=== PATIENT | female | born 1980 | race American Indian/Alaskan Native ===

== ENCOUNTER 2018-12-01 20:28 | Emergency (ER) | payer MEDICAID ==
--- NOTE | 2018-12-01 20:33 | Event Note ---
ED Screening Note Date of service: 12/01/18 Time: 20:32 ED Screening Note: Patient with Ventral hernia pain started today. Pain 9/10 and sharp and radiating to back. No n/v or fever or chills. Patient with h/o hernia and repaired in 2017 but returned 2 weeks later. [place] [facility] [place] Wears abdominal binder daily. Denies urinary symptoms Pt had vaginal delivery with eclampsia. Delivered 09/20/2018 at [facility]. Recent liver scan and liver enzymes monitored bt BY Opal Devlin at [place]. Gi. Doctor Tachycardia with BP 135/95 and monitored Abdomen: upper mid abdominal protrusion with TTP and irreducuble Hernia. Positive gaurding and rebound This initial assessment/diagnostic orders/clinical plan/treatment(s) is/are subject to change based on patients health status, clinical progression and re- assessment by fellow clinical providers in the ED. Further treatment and workup at subsequent clinical providers discretion. Patient/guardian urged not to elope from the ED as their condition may be serious if not clinically assessed and managed. Initial orders include: labs and ct scan
[2018-12-01] MEDS ORDERED: ZOFRAN IV ONE ×2 (21:15→22:58)
[2018-12-01] MEDS ORDERED: NACL 0.9% 1000 ML 1,000 ML IV ONE (21:15)
[2018-12-01] MEDS ORDERED: MORPHINE IV ONE (21:15)
[2018-12-01 21:24] LABS: Basophils # (Auto) 0.1 K/mm3 (0.0-0.1); Basophils % (Auto) 1.7 % (0.0-1.8); Eosinophils % (Auto) 0.6 % (0.0-4.3); Hematocrit 46.2 % (30.3-42.9); Hemoglobin 15.7 gm/dl (10.1-14.3); Lymphocytes # (Auto) 2.1 K/mm3 (1.2-5.4); Lymphocytes % (Auto) 33.3 % (13.4-35.0); Mean Corpuscular HGB Conc 34 % (30-34); Mean Corpuscular Volume 90 fl (79-97); Monocytes # (Auto) 0.5 K/mm3 (0.0-0.8); Monocytes % (Auto) 8.2 % (0.0-7.3); Platelet Count 242 K/mm3 (140-440); Red Blood Count 5.15 M/mm3 (3.65-5.03); Red Cell Distribution Width 13.7 % (13.2-15.2)
[2018-12-01 21:49] LABS: Albumin 4.7 g/dL (3.9-5); Bilirubin,Direct 0.3 mg/dL (0-0.2)
[2018-12-01 21:56] LABS: HCG Qualitative,Urine Negative (Negative)
--- NOTE | 2018-12-01 22:02 | Emergency Department Report ---
ED Abdominal Pain HPI - General Chief Complaint: Abdominal Pain Stated Complaint: HERNIA PAIN Time Seen by Provider: 12/01/18 20:30 Source: patient Mode of arrival: Ambulatory Limitations: No Limitations - History of Present Illness Initial Comments: Patient is a 38 y/o aaf with hx Ventral hernia, repair 2 yrs ago, states recurring protrusion usually manged with abdominal binder, pt [place] [facility] [place], Pt presents today for 9/10 abdominal pain . Pain described as sharp and radiating to back. No n/v or fever or chills. Denies urinary symptoms. Pt also advises vaginal delivery with eclampsia 09/20/2018 bp is controlled. MD Complaint: abdominal pain Onset/Timin -: days(s), unknown (recurring for past 2 yrs ) Location: RUQ, epigastric Radiation: RUQ, epigastric Severity scale (0 -10): 6 Quality: sharp Consistency: intermittent Improves With: nothing Worsens With: movement Context: other (ventral hernia ) Associated Symptoms: constipation. denies: nausea, vomiting, diarrhea, fever, chills, dysuria, melena - Related Data LMP (females 10-50): 2 months Previous Rx's Medication Instructions Recorded Last Taken Type Bisacodyl [Dulcolax suppos] 10 mg LA ONCE PRN #12 supp.rect 12/02/18 Unknown Rx Docusate Sodium [Colace] 100 mg PO BID #60 capsule 12/02/18 Unknown Rx Polyethylene Glycol 3350 [Miralax 17 gm PO BID PRN #14 packet 12/02/18 Unknown Rx 3350] traMADol [Ultram] 50 mg PO Q4HR PRN #12 tablet 12/02/18 Unknown Rx Allergies Allergy/AdvReac Type Severity Reaction Status Date / Time No Known Allergies Allergy Unverified 12/01/18 20:43 ED Review of Systems ROS: Stated complaint: HERNIA PAIN Other details as noted in HPI Constitutional: denies: chills, fever Eyes: denies: eye pain, eye discharge, vision change ENT: denies: ear pain, throat pain Respiratory: denies: cough, shortness of breath, wheezing Cardiovascular: denies: chest pain, palpitations Endocrine: no symptoms reported Gastrointestinal: abdominal pain, constipation. denies: nausea, vomiting, di arrhea, hematemesis, melena, hematochezia Genitourinary: denies: urgency, dysuria, discharge Musculoskeletal: denies: back pain, joint swelling, arthralgia Skin: denies: rash, lesions Neurological: denies: headache, weakness, paresthesias Psychiatric: denies: anxiety, depression Hematological/Lymphatic: denies: easy bleeding, easy bruising ED Past Medical Hx - Past Medical History Previous Medical History?: Yes Additional medical history: Elevated liver enzymes. Pre Eclampsia. Umbilical hernia - Surgical History Past Surgical History?: Yes Additional Surgical History: Umbilical hernia repair X 2 - Social History Smoking Status: Never Smoker Substance Use Type: None - Medications Home Medications: Home Medications Medication Instructions Recorded Confirmed Last Taken Type Bisacodyl [Dulcolax suppos] 10 mg LA ONCE PRN #12 supp.rect 12/02/18 Unknown Rx Docusate Sodium [Colace] 100 mg PO BID #60 capsule 12/02/18 Unknown Rx Polyethylene Glycol 3350 [Miralax 17 gm PO BID PRN #14 packet 12/02/18 Unknown Rx 3350] traMADol [Ultram] 50 mg PO Q4HR PRN #12 tablet 12/02/18 Unknown Rx ED Physical Exam - General Limitations: No Limitations General appearance: alert, in no apparent distress - Head Head exam: Present: atraumatic, normocephalic - Eye Eye exam: Present: normal appearance, PERRL, EOMI Pupils: Present: normal accommodation - ENT ENT exam: Present: mucous membranes moist - Neck Neck exam: Present: normal inspection, full ROM. Absent: tenderness, lymphadenopathy - Respiratory Respiratory exam: Present: normal lung sounds bilaterally. Absent: wheezes, stridor, chest wall tenderness - Cardiovascular Cardiovascular Exam: Present: regular rate, normal rhythm, normal heart sounds. Absent: systolic murmur, diastolic murmur, rubs, gallop - GI/Abdominal GI/Abdominal exam: Present: soft, tenderness (periumbilical ), guarding, normal bowel sounds, hernia (periumbilical no bruit no thrill ). Absent: rebound, rigid, bruit - Rectal Rectal exam: Present: deferred - Extremities Exam Extremities exam: Present: normal inspection - Back Exam Back exam: Present: normal inspection, full ROM. Absent: tenderness, CVA tenderness (R), CVA tenderness (L), muscle spasm, rash noted - Neurological Exam Neurological exam: Present: alert, oriented X3, CN II-XII intact, normal gait - Psychiatric Psychiatric exam: Present: normal affect, normal mood - Skin Skin exam: Present: warm, dry, intact, normal color. Absent: rash ED Course Vital Signs 12/01/18 12/01/18 20:34 22:43 Temperature 98.0 F 98.6 F Pulse Rate 112 H 103 H Respiratory 20 18 Rate Blood Pressure 135/95 Blood Pressure 150/103 [Left] O2 Sat by Pulse 98 100 Oximetry - Reevaluation(s) Reevaluation #1: Attempted to reduce ventral hernia , pt advises stop due to pain, pt given morphine, zofran, still not tolerating after [address] abd pelvis with contrast, to rule out incarceration v/s obstruction, abd is firm llq, last bm todays, small firm. 12/01/18 21:30 Reevaluation #2: pt given diluadid 0.5 mg iv, placed in [place], ventral hernia reduced, pain resolved to 0/10, bs normal, pt will follow up with [facility] [place] 2 days as scheduled, abd binder placed as rx abd now soft non tender, bs normal, 12/01/18 23:43 ED Medical Decision Making - Lab Data Result diagrams: 12/01/18 20:54 12/01/18 22:36 Labs 12/01/18 12/01/18 12/01/18 20:54 20:54 20:54 WBC 6.3 RBC 5.15 H Hgb 15.7 H Hct 46.2 H MCV 90 MCH 30 MCHC 34 RDW 13.7 Plt Count 242 Lymph % (Auto) 33.3 [place] % (Auto) 8.2 H Eos % (Auto) 0.6 Baso % (Auto) 1.7 Lymph # 2.1 [place] # 0.5 Eos # 0.0 Baso # 0.1 Seg Neutrophils % 56.2 Seg Neutrophils # 3.6 Total Bilirubin 1.70 H Direct Bilirubin 0.3 H Indirect Bilirubin 1.4 AST 37 ALT 26 Alkaline Phosphatase 124 Total Protein 8.5 H Albumin 4.7 Albumin/Globulin Ratio 1.2 Lipase 53 HCG, Qual Negative Urine HCG, Qual 12/01/18 12/01/18 22:36 Unknown WBC RBC Hgb Hct MCV MCH MCHC RDW Plt Count Lymph % (Auto) [place] % (Auto) Eos % (Auto) Baso % (Auto) Lymph # [place] # Eos # Baso # Seg Neutrophils % Seg Neutrophils # Total Bilirubin Direct Bilirubin Indirect Bilirubin AST ALT Alkaline Phosphatase Total Protein Albumin Albumin/Globulin Ratio Lipase HCG, Qual Negative Urine HCG, Qual Negative - Radiology Data Radiology results: report reviewed, image reviewed Ordering Physician: ARTHUR MEDRANO Date of Service: 12/01/18 Procedure(s): CT abdomen pelvis w con Accession Number(s): [id number] cc: ARTHUR MEDRANO CT ABDOMEN AND PELVIS WITH CONTRAST HISTORY: abominal pain with Ventral hernia. COMPARISON: None. TECHNIQUE: CT images of the abdomen and pelvis were obtained following administration of intravenous contrast. All CT scans at this location are performed using CT dose reduction for ALARA by means of automated exposure control. CONTRAST: 100 ml of intravenous contrast administered. FINDINGS: Lungs/bones: There is mild bibasilar atelectasis. No acute osseous abnormality identified. Abdomen/pelvis: The liver is mildly enlarged with no focal mass identified. The gallbladder, spleen, pancreas, adrenals, kidneys, and proximal GI tract appear unremarkable. There is a midline supraumbilical hernia containing a knuckle of small bowel with associated small bowel obstruction. Urinary bladder is unremarkable. The uterus is heterogeneous in appearance--correlate with stage of menstrual cycle. No significant pelvic free fluid. No acute colonic abnormality. IMPRESSION: 1. Supraumbilical hernia containing a knuckle of bowel with resultant small bowel obstruction. 2. Additional incidental findings as outlined above. Signer Name: Maximino Aguilar MD Signed: 12/01/2018 10:29 PM Workstation Name: [id number] Transcribed By: VALERY Dictated By: Maximino Aguilar MD Electronically Authenticated By: Maximino Aguilar MD Signed Date/Time: 12/01/182228 DD/ 26 TD/TT: - Medical Decision Making Hernia reduced, pain relieved plan continue abd binder, Miralax, dulcolax, colace, ultram, follow up with [facility] [place] as scheduled. pt verbalized agreement and understanding of same. pt is a/o x 3 ambulatory with steady gait, tolerating po intake , no n/v no diarrhea. Critical care attestation.: If time is entered above; I have spent that time in minutes in the direct care of this critically ill patient, excluding procedure time. ED Disposition Clinical Impression: Ventral hernia with obstruction and without gangrene Disposition: TO HOME OR SELFCARE Is pt being admited?: No Does the pt Need Aspirin: No Condition: Stable Instructions: Ventral Hernia (ED) Additional Instructions: follow up with your [facility] in 2-3 days, return to ed if syptoms return , worsen, or unable to tolerate by mouth intake. Prescriptions: Docusate Sodium [Colace] 100 mg PO BID #60 capsule Bisacodyl [Dulcolax suppos] 10 mg LA ONCE PRN #12 supp.rect PRN Reason: Constipation Polyethylene Glycol 3350 [Miralax 3350] 17 gm PO BID PRN #14 packet PRN Reason: Constipation traMADol [Ultram] 50 mg PO Q4HR PRN #12 tablet PRN Reason: Pain Referrals: JESSE STEVENSON MD [Staff Physician] - 3-5 Days Forms: Work/School Release Form(ED) Time of Disposition: 00:51
--- NOTE | 2018-12-01 22:34 | Cat Scan Report ---
CT ABDOMEN AND PELVIS WITH CONTRAST HISTORY: abominal pain with Ventral hernia. COMPARISON: None. TECHNIQUE: CT images of the abdomen and pelvis were obtained following administration of intravenous contrast. All CT scans at this location are performed using CT dose reduction for ALARA by means of automated exposure control. CONTRAST: 100 ml of intravenous contrast administered. FINDINGS: Lungs/bones: There is mild bibasilar atelectasis. No acute osseous abnormality identified. Abdomen/pelvis: The liver is mildly enlarged with no focal mass identified. The gallbladder, spleen, pancreas, adrenals, kidneys, and proximal GI tract appear unremarkable. There is a midline supraumbilical hernia containing a knuckle of small bowel with associated small elzbieta wel obstruction. Urinary bladder is unremarkable. The uterus is heterogeneous in appearance--correlate with stage of m enstrual cycle. No significant pelvic free fluid. No acute colonic abnormality. IMPRESSION: 1. Supraumbilical hernia containing a knuckle of bowel with resultant small bowel obstruction. 2. Additional incidental findings as outlined above. Signer Name: Maximino Aguilar MD Signed: 12/01/2018 10:29 PM Workstation Name: [id number]
[2018-12-01] MEDS ORDERED: DILAUDID IV ONE ×2 (22:58→22:59)
[2018-12-01 23:25] VITALS: BP 150/103
[2018-12-02 00:05] LABS: Bilirubin,Urine NEG (Negative); Blood,Urine NEG (Negative); Color,Urine Straw (Yellow); Protein,Urine <15 mg/dL mg/dL (Negative); Urobilinogen,Urine < 2.0 mg/dL (<2.0)
[2018-12-02 01:05] LABS: Alanine Aminotransferase 27 units/L (7-56); Albumin 4.9 g/dL (3.9-5); BUN/Creatinine Ratio 22; Blood Urea Nitrogen 13 mg/dL (7-17); Calcium 10.2 mg/dL (8.4-10.2); Hemolysis Index 12
== END 2018-12-02 01:10 | disposition home or self-care (01) ==
LOC: ED 20:28
DX: K43.6 Other and unspecified ventral hernia with obstruction, without gangrene (principal); Z79.899 Other long term (current) drug therapy
CPT/HCPCS: 36415; 74177; 80053; 80076; 81001; 81025; 83690; 84703; 85025; 96374; 96375; 96376; 99284; J1170; J2270; J2405; J7030; Q9967

== ENCOUNTER 2020-04-01 17:47 | Emergency (ER) | payer MEDICAID ==
--- NOTE | 2020-04-01 18:33 | XRay Report ---
CHEST 2 VIEWS INDICATION / CLINICAL INFORMATION: Chest Pain. COMPARISON: None available. FINDINGS: SUPPORT DEVICES: None. HEART / MEDIASTINUM: No significant abnormality. LUNGS / PLEURA: No significant pulmonary or pleural abnormality. No pneumothorax. ADDITIONAL FINDINGS: No significant additional findings. IMPRESSION: No significant abnormality Signer Name: Giovanni Evans MD FACR Signed: 04/01/2020 6:28 PM Workstation Name: [id number]
[2020-04-01 18:42] LABS: Basophils % (Auto) 0.4 % (0.0-1.8); Eosinophils # (Auto) 0.1 K/mm3 (0.0-0.4); Eosinophils % (Auto) 1.6 % (0.0-4.3); Hemoglobin 14.7 gm/dl (10.1-14.3); Lymphocytes # (Auto) 2.7 K/mm3 (1.2-5.4); Lymphocytes % (Auto) 36.5 % (13.4-35.0); Mean Corpuscular HGB Conc 34 % (30-34); Mean Corpuscular Volume 90 fl (79-97); Monocytes # (Auto) 0.6 K/mm3 (0.0-0.8); Monocytes % (Auto) 7.8 % (0.0-7.3); Platelet Count 228 K/mm3 (140-440); Red Blood Count 4.77 M/mm3 (3.65-5.03); Red Cell Distribution Width 13.1 % (13.2-15.2)
--- NOTE | 2020-04-01 19:02 | Event Note ---
ED Screening Note Date of service: 04/01/20 Time: 19:00 ED Screening Note: Pt c/o of substernal chest pain x today denies SOB, cough, fever + control use denies leg pain/swelling, recent long travel, or hx of DVT/PE This initial assessment/diagnostic orders/clinical plan/treatment(s) is/are subject to change based on patients health status, clinical progression and re- assessment by fellow clinical providers in the ED. Further treatment and workup at subsequent clinical providers discretion. Patient/guardian urged not to elope from the ED as their condition may be serious if not clinically assessed and managed. Initial orders include: labs XR ekg
[2020-04-01 19:12] LABS: Alanine Aminotransferase 16 units/L (7-56); Albumin 4.2 g/dL (3.9-5); Blood Urea Nitrogen 12 mg/dL (7-17); Calcium 9.7 mg/dL (8.4-10.2); Hemolysis Index 9
[2020-04-01 19:15] LABS: BUN/Creatinine Ratio 20
--- NOTE | 2020-04-01 19:48 | Emergency Department Report ---
ED Chest Pain HPI - General Chief Complaint: Chest Pain Stated Complaint: CHEST PAIN/TINGLING RT HAND/ARM PUI?: No Time Seen by Provider: 04/01/20 18:59 Source: patient, RN notes reviewed Mode of arrival: Ambulatory Limitations: No Limitations - History of Present Illness Initial Comments: The patient was evaluated in the emergency department for symptoms described in the history of present illness. He/she was evaluated in the context of the global COVID-19 pandemic, which necessitated consideration that the patient might be at risk for infection with the virus that causes COVID-19. Institutional protocols and algorithms that pertain to the evaluation of patients at risk for COVID-19 are in a state of rapid change based on information released by regulatory bodies including the CDC and federal and state organizations. These policies and algorithms were followed during the patient's care in the emergency department. Please note that these policies, procedures and recommendations changed on a rapid basis. During the history and physical examination, I am chaperoned by Cony Robins This is a 40-year-old female. The patient is not known to myself previously. The patient is right-hand dominant. The patient takes Depo-Provera, and reports that she is not . The patient has a history of hypertension. She presents to the ER with 3 complaints. The patient's first complaint is headache. The headache is occipital, and bitemporal. The headache started last week. The headache is not sudden or thunderclap in nature. The headache is not maximal in intensity. The headache is not the worst headache of her life, she has had worse headaches a few months ago. The headache is not associate with loss of vision, fever, neck pain, neck stiffness, trauma, motor vehicle accident, or chiropractic manipulation. The patient associates her headache, with intermittent right upper extremity numbness. The numbness skips areas in her right upper extremity, and involves her proximal shoulder, distal bicep, and right hand. However, the numbness skips over her distal forearm, and proximal forearm. There is no other extremity complaints. The patient's next complaint is chest pain. The chest pain is central and right-sided. It started today. It occasionally moves to the left side. The patient denies vomiting, diaphoresis, and exertional shortness of breath. There is no personal or family history of DVT, pulmonary embolism, or ischemic heart disease. Headache constant for the past week, does not have exacerbating or relieving factors or aggravating factors. Right upper extremity numbness intermittent, present for the last week, does not have exacerbating or relieving factors. Chest tightness have been present for about 9 hours, intermittent, does not radiate anywhere, except as noted, does not have exacerbating relieving factors MD Complaint: chest pain, other -: Gradual, hour(s), days(s) Onset: during rest Pain Location: substernal, left chest, right chest Pain Radiation: none Severity: mild Quality: aching Consistency: intermittent Improves With: nothing Worsens With: nothing Treatments Prior to Arrival: none Aspirin use within the Past 7 Days: (0) No - Related Data Home Medications Medication Instructions Recorded Confirmed Last Taken Losartan [Cozaar] 25 mg PO QDAY 04/01/20 04/01/20 Unknown Previous Rx's Medication Instructions Recorded Last Taken Type Acetaminophen [Non-Aspirin Extra 500 mg PO Q6HR PRN #30 tablet 04/02/20 Unknown Rx Strength] Aspirin [Aspirin BABY CHEW TAB] 81 mg PO QDAY #30 tab.chew 04/02/20 Unknown Rx Famotidine [Pepcid] 20 mg PO BID #30 tablet 04/02/20 Unknown Rx Metoclopramide [Reglan] 10 mg PO QID PRN #30 tablet 04/02/20 Unknown Rx Allergies Allergy/AdvReac Type Severity Reaction Status Date / Time No Known Allergies Allergy Verified 04/01/20 17:52 Heart Score - HEART Score History: Slightly suspicious EKG: Non-specific Age: < 45 Risk factors: 1-2 risk factors Troponin: < normal limit HEART Score: 2 - Critical Actions Critical Actions: 0-3 pts:0.9-1.7%risk of adverse cardiac event.Candidate for discharge ED Review of Systems ROS: Stated complaint: CHEST PAIN/TINGLING RT HAND/ARM Other details as noted in HPI Constitutional: denies: fever Eyes: denies: eye discharge, vision change ENT: denies: epistaxis Respiratory: denies: cough, shortness of breath Cardiovascular: chest pain Gastrointestinal: abdominal pain Genitourinary: denies: dysuria Musculoskeletal: denies: myalgia Neurological: headache, numbness. denies: weakness, abnormal gait, vertigo ED Past Medical Hx - Past Medical History Additional medical history: Elevated liver enzymes. Post Eclampsia. Umbilical hernia - Surgical History Additional Surgical History: Umbilical hernia repair X 2 - Social History Smoking Status: Never Smoker Substance Use Type: None - Medications Home Medications: Home Medications Medication Instructions Recorded Confirmed Last Taken Type Losartan [Cozaar] 25 mg PO QDAY 04/01/20 04/01/20 Unknown History Acetaminophen [Non-Aspirin Extra 500 mg PO Q6HR PRN #30 tablet 04/02/20 Unknown Rx Strength] Aspirin [Aspirin BABY CHEW TAB] 81 mg PO QDAY #30 tab.chew 04/02/20 Unknown Rx Famotidine [Pepcid] 20 mg PO BID #30 tablet 04/02/20 Unknown Rx Metoclopramide [Reglan] 10 mg PO QID PRN #30 tablet 04/02/20 Unknown Rx ED Physical Exam - General Limitations: No Limitations General appearance: alert, in no apparent distress - Head Head exam: Present: atraumatic, normocephalic - Eye Eye exam: Present: normal appearance, PERRL, EOMI, other (Visual acuity intact to finger counting, color perception, reading at a close distance). Absent: nystagmus - ENT ENT exam: Present: normal exam, normal orophraynx, mucous membranes moist, normal external ear exam - Neck Neck exam: Present: normal inspection, full ROM. Absent: tenderness, meningismus - Respiratory Respiratory exam: Present: normal lung sounds bilaterally. Absent: respiratory distress, wheezes, rales, rhonchi, stridor, chest wall tenderness - Cardiovascular Cardiovascular Exam: Present: regular rate, normal rhythm, normal heart sounds. Absent: bradycardia, tachycardia, irregular rhythm, systolic murmur, diastolic murmur, rubs, gallop - GI/Abdominal GI/Abdominal exam: Present: soft, normal bowel sounds. Absent: distended, tende rness, guarding, rebound, rigid, pulsatile mass - Extremities Exam Extremities exam: Present: normal inspection, full ROM, other (2+ pulses noted in the bilateral upper and lower extremities. There is no palpable cord. negative Homans sign. Muscular compartments are soft. The pelvis is stable.). Absent: pedal edema, calf tenderness - Back Exam Back exam: Present: normal inspection, full ROM. Absent: tenderness, CVA tenderness (R), CVA tenderness (L), paraspinal tenderness, vertebral tenderness - Neurological Exam Neurological exam: Present: alert, oriented X3, normal gait, reflexes normal, other (There is no facial droop. The tongue is midline. Extraocular movements are intact bilaterally. There is 5 out of 5 strength in bilateral upper and lower extremities. Sensation is intact to light touch bilateral upper and lower extremities. There is no past-pointing. There is no pronator drift.). Absent: motor sensory deficit - Psychiatric Psychiatric exam: Present: normal affect, normal mood - Skin Skin exam: Present: warm, dry, intact, normal color. Absent: rash ED Course Vital Signs 04/01/20 04/01/20 04/01/20 17:53 19:41 19:45 Temperature 98.8 F Pulse Rate 102 H 94 H Respiratory 16 11 L 18 Rate Blood Pressure 146/97 Blood Pressure 140/94 [Left] O2 Sat by Pulse 98 100 Oximetry 04/01/20 04/01/20 04/01/20 20:00 20:50 21:00 Temperature Pulse Rate 92 H 87 Respiratory 17 21 Rate Blood Pressure 146/97 126/83 126/83 Blood Pressure [Left] O2 Sat by Pulse 99 100 Oximetry 04/01/20 04/01/20 21:30 22:00 Temperature Pulse Rate 82 95 H Respiratory 17 19 Rate Blood Pressure 130/89 130/89 Blood Pressure [Left] O2 Sat by Pulse 99 99 Oximetry - Reevaluation(s) Reevaluation #1: 04/01/20 20:47 Differential diagnosis, including but not limited to: Migraine headache, tension headache, cluster headache, cervical radiculopathy, TIA, multiple sclerosis, conversion disorder, GERD, gastritis, hiatal hernia, pneumonia, acute coronary syndrome, pulmonary embolism. Assessment and plan: 40-year-old female with multiple complaints. Complaint #1, headache, and intermittent right upper extremity numbness. The patient has a GCS of 15, with NIH score of 0. Her detailed neurologic exam is pristine, and unremarkable. Her examination at this time is within normal limits, therefore, TPA not indicated, and emergent CT angiographic imaging of the head and neck not indicated, as large vessel occlusion is not currently suggested by her history and physical examination. In addition, her nonspecific headache and neurologic symptoms have been present for 1 week. Headache is not sudden or thunderclap in nature, not maximal in intensity, not the worst headache of her life, and there are no meningeal signs. This is unlikely to be a subarachnoid hemorrhage. We will treat her headache sup portively and symptomatically, noncontrast CT scan of the brain was negative for acute findings. In addition, her articulated right upper extremity numbness seems to skip regions in her right upper extremity, by history, but sensation is intact to light touch, proprioception, and pinch in the bilateral upper and lower extremities, with appropriate reflexes. Examination is not consistent with cord compression. Complaints #2, chest pain tachycardia resolved. EKG unchanged x2. Not currently tachycardic, tachypneic or hypoxic. Takes Depo-Provera, but otherwise, no DVT or pulmonary embolism risk factors. Has equal pulses in the upper and lower extremities, no pulsatile abdominal mass, and unremarkable x-ray of the chest. Aortic disease is unlikely. Check troponin x2, EKG x2, D-dimer. Treat symptoms, x-ray the chest is unremarkable. From a cardiac risk stratification standpoint, patient is suitable to follow-up with outpatient cardiology to complete a cardiac risk ratification. I do not suspect pulmonary embolism at this time. Reassess after D-dimer has resulted. Reevaluation #2: 04/01/20 22:49 Neurologic exam benign, and unchanged. EKG unchanged x2. Troponin negative x2. Patient endorses significant improvement in symptoms. D-dimer positive, CT scan of the chest ordered and pending. Patient updated. She has verbalized understanding. Reevaluation #3: 04/02/20 00:02 Final reassessment. Tachycardia resolved. Patient feels improved. CT scan of the chest negative for acute findings. Patient resting comfortably in no acute distress. Repeat neurologic examination unchanged. Endorses readiness for discharge and symptomatic improvement. - Consultations Consultation #1: 04/01/20 21:30 Patient seen, examined and evaluated by neurology, Dr. Marija Lamar, who agrees that this is very unlikely to represent a central process, and agrees that the patient may follow-up with an outpatient provider from a neurologic standpoint. Repeat EKG unremarkable, troponin, D-dimer pending at this time. Vital signs are unremarkable at this time. KEYUR score - Keyur Score Age > 65: (0) No Aspirin use within the Past 7 Days: (0) No 3 or more CAD Risk Factors: (0) No 2 or more Angina events in past 24 hrs: (0) No Known CAD with more than 50% Stenosis: (0) No Elevated Cardiac Markers: (0) No ST Deviation Greater than 0.5mm: (0) No KEYUR Score: 0 ED Medical Decision Making - Lab Data Result diagrams: 04/01/20 18:11 04/01/20 18:11 Vital Signs 04/01/20 04/01/20 17:53 19:45 Temperature 98.8 F Pulse Rate 102 H Respiratory 16 18 Rate Blood Pressure 140/94 [Left] O2 Sat by Pulse 98 Oximetry Lab Results 04/01/20 04/01/20 04/01/20 Range/Units 18:11 18:11 18:11 WBC 7.3 (4.5-11.0) K/mm3 RBC 4.77 (3.65-5.03) M/mm3 Hgb 14.7 H (10.1-14.3) gm/dl Hct 43.0 H (30.3-42.9) % MCV 90 (79-97) fl MCH 31 (28-32) pg MCHC 34 (30-34) % RDW 13.1 L (13.2-15.2) % Plt Count 228 (140-440) K/mm3 Lymph % (Auto) 36.5 H (13.4-35.0) % [place] % (Auto) 7.8 H (0.0-7.3) % Eos % (Auto) 1.6 (0.0-4.3) % Baso % (Auto) 0.4 (0.0-1.8) % Lymph # (Auto) 2.7 (1.2-5.4) K/mm3 [place] # (Auto) 0.6 (0.0-0.8) K/mm3 Eos # (Auto) 0.1 (0.0-0.4) K/mm3 Baso # (Auto) 0.0 (0.0-0.1) K/mm3 Seg Neutrophils % 53.7 (40.0-70.0) % Seg Neutrophils # 3.9 (1.8-7.7) K/mm3 Sodium 138 (137-145) mmol/L Potassium 3.8 (3.6-5.0) mmol/L Chloride 105.4 (98-107) mmol/L Carbon Dioxide 25 (22-30) mmol/L Anion Gap 11 mmol/L BUN 12 (7-17) mg/dL Creatinine 0.6 (0.6-1.2) mg/dL Estimated GFR > 60 ml/min BUN/Creatinine Ratio 20 % Glucose 116 H (65-100) mg/dL Calcium 9.7 (8.4-10.2) mg/dL Total Bilirubin 0.70 (0.1-1.2) mg/dL AST 19 (5-40) units/L ALT 16 (7-56) units/L Alkaline Phosphatase 157 H (35-129) units/L Troponin T < 0.010 (0.00-0.029) ng/mL Total Protein 7.7 (6.3-8.2) g/dL Albumin 4.2 (3.9-5) g/dL Albumin/Globulin Ratio 1.2 % - EKG Data -: EKG Interpreted by Tx EKG shows normal: sinus rhythm Rate: normal - EKG Data When compared to previous EKG there are: previous EKG unavailable 04/01/20 20:50 EKG #2 demonstrates sinus rhythm, 87 bpm, normal axis, normal intervals, borderline high left ventricular voltage, abnormal EKG, not a STEMI. This is unchanged from EKG #1, except EKG #1 shows a sinus rhythm and tachycardia. - Radiology Data Radiology results: pending, report reviewed, image reviewed CT head/brain wo con INDICATION / CLINICAL INFORMATION: 40 years Female; weiner, right arm numbness. TECHNIQUE: Routine CT head without contrast. All CT scans at this location are performed using CT dose reduction for ALARA by means of automated exposure control. COMPARISON: None. FINDINGS: BRAIN / INTRACRANIAL CONTENTS: The brain appears to demonstrate appropriate attenuation. The ventricular system is within normal limits in size and configuration. There is no CT evidence of acute intracranial hemorrhage or significant mass effect. ORBITS: No significant abnormality of visualized orbits. SINUSES / MASTOIDS: No significant abnormality in the visualized paranasal sinuses or mastoid air cells. CRANIOCERVICAL JUNCTION: No significant abnormality. ADDITIONAL FINDINGS: None. IMPRESSION: 1. There is no CT evidence of acute intracranial process. Signer Name: Hussein Pimentel MD Signed: 04/01/2020 7:37 PM Workstation Name: [id number] CHEST 2 VIEWS INDICATION / CLINICAL INFORMATION: Chest Pain. COMPARISON: None available. FINDINGS: SUPPORT DEVICES: None. HEART / MEDIASTINUM: No s ignificant abnormality. LUNGS / PLEURA: No significant pulmonary or pleural abnormality. No pneumothorax. ADDITIONAL FINDINGS: No significant additional findings. IMPRESSION: No significant abnormality Signer Name: Giovanni Evans MD FACR Signed: 04/01/2020 5:28 PM Workstation Name: [id number] CTA CHEST WITH CONTRAST INDICATION / CLINICAL INFORMATION: Pt complains of acute chest pain, tachycardia, elevated D-dimer. TECHNIQUE: Axial CT images were obtained through the chest after injection of IV contrast. 3 plane MIP and/or 3D reconstructions were produced. All CT scans at this location are performed using CT dose reduction for ALARA by means of automated exposure control. COMPARISON: None available. FINDINGS: PULMONARY ARTERIES: No central or segmental pulmonary embolus. THORACIC AORTA: No significant abnormality. HEART: No significant abnormality. ADENOPATHY: No significant adenopathy. LUNGS/PLEURA: No focal airspace consolidation. No pleural effusion. No pneumothorax. ADDITIONAL FINDINGS: None. UPPER ABDOMEN: No acute findings. SKELETAL STRUCTURES: No significant osseous abnormality. IMPRESSION: No acute findings in the chest. No evidence of pulmonary embolus. Signer Name: Kuldeep Stewart MD Signed: 04/01/2020 10:53 PM Workstation Name: [id number] Critical care attestation.: If time is entered above; I have spent that time in minutes in the direct care of this critically ill patient, excluding procedure time. ED Disposition Clinical Impression: History of numbness Headache Qualifiers: Headache type: unspecified Headache chronicity pattern: episodic headache Intractability: not intractable Qualified Code(s): R51.9 - Headache, unspecified Chest pain Qualifiers: Chest pain type: unspecified Qualified Code(s): R07.9 - Chest pain, unspecified Disposition: DC-01 TO HOME OR SELFCARE Is pt being admited?: No Does the pt Need Aspirin: No Condition: Good Instructions: Chest Pain (ED), Nonspecific Chest Pain, Adult, Migraine Headache, Paresthesia Additional Instructions: Minimize/avoid consumption of Motrin, ibuprofen, Naprosyn, Aleve, heavy and spicy foods, smoke products and alcohol. Do not take metformin medication for the next 2 days, if patient takes this medication. Patient may continue the remainder of her other outpatient medications. Please follow-up with a slider assembler, such as the cardiology colleagues at [facility] cardiology, within the next 3 to 4 days. Please follow-up with a primary care doctor, or neurologist, such as Dr. Thacker or Dr Fischer within the next 3 to 5 days. Please return to the emergency room right away with new pain, worsened pain, migration of pain, projectile vomiting, change in mental status, confusion, inability to tolerate liquid feeds, new, worsened or different symptoms not present on the initial emergency room evaluation. Patient may take the Reglan medication as needed for headache and nausea, Pepcid and acetaminophen as needed for headache and chest pain respectively, and aspirin on a daily basis. Referrals: TAMAR FISCHER MD [Referring] - 3-5 Days [facility] [Provider Group] - 3-5 Days TOREY THACKER MD [Staff Physician] - 3-5 Days Forms: Work/School Release Form(ED) - Level of Consciousness 1a. Level of Consciousness: alert/keenly responsive - LOC Questions 1b. LOC Questions: answers both correctly - LOC Command 1c. LOC Commands: performs tasks correctly - Best Gaze 2. Best Gaze: normal - Visual 3. Visual: no visual loss - Facial Palsy 4. Facial Palsy: normal symmetrical movement - Motor Arm 5a. Motor Arm Left: no drift 5b. Motor Arm Right: no drift - Motor Leg 6a. Motor Leg Left: no drift 6b. Motor Leg Right: no drift - Limb Ataxia 7. Limb Ataxia: absent - Sensory 8. Sensory: normal - Best Language 9. Best Language: no aphasia - Dysarthria 10. Dysarthria: normal - Extinction and Inattention 11. Extinction/Inattention: no abnormality - Scoring Total Score: 0 Stroke Severity: No Stroke Symptoms
[2020-04-01] MEDS ORDERED: METOCLOPRAMIDE 10 MG TAB PO ONE (20:02)
[2020-04-01] MEDS ORDERED: NITROGLYCERIN 0.4 MG TAB SUBL SL PRN (20:02)
[2020-04-01] MEDS ORDERED: POTASSIUM CHLORIDE ER 20 MEQ TAB PO ONE (20:02)
[2020-04-01] MEDS ORDERED: ACETAMINOPHEN 325 MG TAB PO ONE (20:02)
--- NOTE | 2020-04-01 20:42 | Cat Scan Report ---
CT head/brain wo con INDICATION / CLINICAL INFORMATION: 40 years Female; weiner, right arm numbness. TECHNIQUE: Routine CT head without contrast. All CT scans at this location are performed using CT dos e reduction for ALARA by means of automated exposure control. COMPARISON: None. FINDINGS: BRAIN / INTRACRANIAL CONTENTS: The brain appears to demonstrate appropriate attenuation. The ventricu lar system is within normal limits in size and configuration. There is no CT evidence of acute intrac ranial hemorrhage or significant mass effect. ORBITS: No significant abnormality of visualized orbits. SINUSES / MASTOIDS: No significant abnormality in the visualized paranasal sinuses or mastoid air yadi ls. CRANIOCERVICAL JUNCTION: No significant abnormality. ADDITIONAL FINDINGS: None. IMPRESSION: 1. There is no CT evidence of acute intracranial process. Signer Name: Hussein Pimentel MD Signed: 04/01/2020 8:37 PM Workstation Name: [id number]
[2020-04-01] MEDS ORDERED: KETOROLAC 30 MG/1 ML INJ IV ONE (21:31)
[2020-04-01] MEDS ORDERED: SODIUM CHLORIDE 0.9% 500 ML 500 ML IV ONE (21:32)
--- NOTE | 2020-04-01 23:58 | Cat Scan Report ---
CTA CHEST WITH CONTRAST INDICATION / CLINICAL INFORMATION: Pt complains of acute chest pain, tachycardia, elevated D-dimer. TECHNIQUE: Axial CT images were obtained through the chest after injection of IV contrast. 3 plane CO P and/or 3D reconstructions were produced. All CT scans at this location are performed using CT dose reduction for ALARA by means of automated exposure control. COMPARISON: None available. FINDINGS: PULMONARY ARTERIES: No central or segmental pulmonary embolus. THORACIC AORTA: No significant abnormality. HEART: No significant abnormality. ADENOPATHY: No significant adenopathy. LUNGS/PLEURA: No focal airspace consolidation. No pleural effusion. No pneumothorax. ADDITIONAL FINDINGS: None. UPPER ABDOMEN: No acute findings. SKELETAL STRUCTURES: No significant osseous abnormality. IMPRESSION: No acute findings in the chest. No evidence of pulmonary embolus. Signer Name: Kuldeep Stewart MD Signed: 04/01/2020 11:53 PM Workstation Name: [id number]
[2020-04-02 00:26] VITALS: BP 127/89
== END 2020-04-02 00:26 | disposition home or self-care (01) ==
LOC: ED 17:47
DX: R07.9 Chest pain, unspecified (principal); R51.9 Headache, unspecified; Z79.899 Other long term (current) drug therapy; Z98.890 Other specified postprocedural states; Z87.898 Personal history of other specified conditions
CPT/HCPCS: 36415; 70450; 71046; 71275; 80053; 82550; 83735; 84443; 84484; 84702; 85025; 85379; 93005; 96360; 96361; 99284; J1885; J7040; Q9967

== ENCOUNTER 2020-04-24 20:04 | Emergency (ER) | payer MEDICAID ==
[2020-04-24] MEDS ORDERED: DIPHtheria,PERTUSSIS(ACELL),TETANUS VACCINE/PF 0.5 ML VIAL IM ONE (20:35)
--- NOTE | 2020-04-24 20:35 | Event Note ---
ED Screening Note ED Screening Note: Patient is presenting to emergency room with complaints of a trip and fall that occurred 2 days ago She has associated left ankle pain and right knee pain She is unsure of her last tetanus immunization There is an abrasion to the right knee with associated cellulitis This initial assessment/diagnostic orders/clinical plan/treatment(s) is/are subject to change based on patients health status, clinical progression and re- assessment by fellow clinical providers in the ED. Further treatment and workup at subsequent clinical providers discretion. Patient/guardian urged not to elope from the ED as their condition may be serious if not clinically assessed and managed. Initial orders include: X-rays, Tdap
[2020-04-24] MEDS ORDERED: HYDROcodone/ACETAMINOPHEN 7.5-325MG TAB PO ONE (20:47)
[2020-04-24] MEDS ORDERED: cephALEXin 500 MG CAP PO ONE (20:47)
[2020-04-24] MEDS ORDERED: ONDANSETRON 4 MG ODT TAB PO ONE (20:47)
[2020-04-24] MEDS ORDERED: IBUPROFEN 600 MG TAB PO ONE (20:47)
[2020-04-24] MEDS ORDERED: SODIUM CHLORIDE 0.9% 1000 ML 1,000 ML IV ONE (21:00)
--- NOTE | 2020-04-24 21:02 | Emergency Department Report ---
ED Fall HPI - General Chief Complaint: Extremity Injury, Lower Stated Complaint: LT ANKLE PAIN;RT KNEE PAIN Time Seen by Provider: 04/24/20 20:34 Source: patient Mode of arrival: Ambulatory - History of Present Illness Initial Comments: Patient is a 40-year-old -Japanese female with a history of hypertension who presents to the ED with complaint of acute onset persistent severe right knee pain and swelling, left ankle pain and ulcerated anterior right knee abrasion wounds with erythematous rash for the last 2 days after she slipped and fell down on the concrete ground landing on her right knee and in the process twisting her left ankle prior to fall. Patient states that she has been cleaning and dressing the anterior right knee abrasion wounds at home but states that the pain got worse in the last 24 hours such that she can hardly bear weight on the right leg because of worsening pain. Patient also states that she has been cleaning the wound with normal Betadine solution and applying Neosporin rayv-ngm-bfkbkoc while taking rhhj-pxc-igmhyjr pain medications. Patient states that the pain is especially worse with ambulation or bearing weight on the right leg and also left ankle. Patient denies loss of consciousness, seizures, nausea, syncope, dizziness, vomiting, chest pain, shortness of breath, low back pain, loss of consciousness, head or neck injuries, numbness and tingling or weakness of lower extremities bilaterally. MD Complaint: fall, other (right knee pain, swelling; left ankle pain; erythematous rash around the left knee abrasion) -: Sudden, days(s) (2) Fall From: standing When Fall Occurred: # days [employer] (2) Fall Witnessed: yes, by family Place Fall Occurred: home, street Loss of Consciousness: none Prolonged Down Time?: no Symptoms Prior to Fall: none Location: other (left ankle; right knee) Location - Extremities: Left: Ankle (ankle), Right: Knee (pain, swelling) Severity: severe Severity scale (0 -10): 8 Quality: sharp, aching Context: tripped/slipped Associated Symptoms: denies, other (tripped and fell). denies: headache, neck pain, numbness, weakness, chest paint, shortness of breath, abdominal pain, hematuria, lightheaded, vertigo, confusion - Related Data Home Medications Medication Instructions Recorded Confirmed Last Taken Losartan [Cozaar] 25 mg PO QDAY 04/01/20 04/01/20 Unknown Previous Rx's Medication Instructions Recorded Last Taken Type Acetaminophen [Non-Aspirin Extra 500 mg PO Q6HR PRN #30 tablet 04/02/20 Unknown Rx Strength] Aspirin [Aspirin BABY CHEW TAB] 81 mg PO QDAY #30 tab.chew 04/02/20 Unknown Rx Famotidine [Pepcid] 20 mg PO BID #30 tablet 04/02/20 Unknown Rx Metoclopramide [Reglan] 10 mg PO QID PRN #30 tablet 04/02/20 Unknown Rx Baclofen 20 mg PO Q8H PRN #24 tablet 04/24/20 Unknown Rx Ibuprofen [Motrin] 600 mg PO Q8H PRN #30 tablet 04/24/20 Unknown Rx Sulfamethoxazole/Trimethoprim 1 each PO Q12H #20 tablet 04/24/20 Unknown Rx [Bactrim DS TAB] traMADoL [Ultram] 50 mg PO Q6HR PRN #12 tablet 04/24/20 Unknown Rx Allergies Allergy/AdvReac Type Severity Reaction Status Date / Time No Known Allergies Allergy Verified 04/01/20 17:52 ED Review of Systems ROS: Stated complaint: LT ANKLE PAIN;RT KNEE PAIN Other details as noted in HPI Constitutional: malaise. denies: chills, fever Eyes: denies: eye pain, eye discharge, vision change ENT: denies: ear pain, throat pain Respiratory: denies: cough, shortness of breath, wheezing Cardiovascular: denies: chest pain, palpitations Endocrine: no symptoms reported Gastrointestinal: denies: abdominal pain, nausea, diarrhea Genitourinary: denies: urgency, dysuria, discharge Musculoskeletal: joint swelling (right knee swelling), arthralgia (left ankle and right knee pain), other (Erythematous painful or swollen abrasion on anterior right knee; left ankle pain). denies: back pain Skin: rash (Erythematous rash on anterior right knee around abrasion wound wth purulent discharge), change in color. denies: lesions Neurological: denies: headache, weakness, paresthesias Psychiatric: denies: anxiety, depression Hematological/Lymphatic: denies: easy bleeding, easy bruising ED Past Medical Hx - Past Medical History Previous Medical History?: Yes Hx Hypertension: Yes Additional medical history: Elevated liver enzymes. Post Eclampsia. Umbilical hernia - Surgical History Past Surgical History?: Yes Additional Surgical History: Umbilical hernia repair X 2 - Social History Smoking Status: Never Smoker Substance Use Type: None - Medications Home Medications: Home Medications Medication Instructions Recorded Confirmed Last Taken Type Losartan [Cozaar] 25 mg PO QDAY 04/01/20 04/01/20 Unknown History Acetaminophen [Non-Aspirin Extra 500 mg PO Q6HR PRN #30 tablet 04/02/20 Unknown Rx Strength] Aspirin [Aspirin BABY CHEW TAB] 81 mg PO QDAY #30 tab.chew 04/02/20 Unknown Rx Famotidine [Pepcid] 20 mg PO BID #30 tablet 04/02/20 Unknown Rx Metoclopramide [Reglan] 10 mg PO QID PRN #30 tablet 04/02/20 Unknown Rx Baclofen 20 mg PO Q8H PRN #24 tablet 04/24/20 Unknown Rx Ibuprofen [Motrin] 600 mg PO Q8H PRN #30 tablet 04/24/20 Unknown Rx Sulfamethoxazole/Trimethoprim 1 each PO Q12H #20 tablet 04/24/20 Unknown Rx [Bactrim DS TAB] traMADoL [Ultram] 50 mg PO Q6HR PRN #12 tablet 04/24/20 Unknown Rx ED Physical Exam - General Limitations: No Limitations General appearance: alert, in no apparent distress - Head Head exam: Present: atraumatic, normocephalic, normal inspection - Eye Eye exam: Present: normal appearance, PERRL, EOMI Pupils: Present: normal accommodation - ENT ENT exam: Present: normal exam, normal orophraynx, mucous membranes moist, TM's normal bilaterally, normal external ear exam - Neck Neck exam: Present: normal inspection, full ROM - Respiratory Respiratory exam: Present: normal lung sounds bilaterally. Absent: respiratory distress, wheezes, rales, rhonchi, chest wall tenderness, accessory muscle use, decreased breath sounds, prolonged expiratory - Cardiovascular Cardiovascular Exam: Present: normal rhythm, tachycardia, normal heart sounds. Absent: systolic murmur, diastolic murmur, rubs, gallop - GI/Abdominal GI/Abdominal exam: Present: soft, normal bowel sounds. Absent: tenderness, guarding, rebound, hyperactive bowel sounds, hypoactive bowel sounds, organomegaly, mass - Extremities Exam Extremities exam: Present: normal inspection, tenderness (Palpable anterior right knee tenderness with swelling and erythematous maculopapular rash around open abrasion wounds with purulent discharge), normal capillary refill, joint swelling (Mildly swollen anterior right knee due to erythematous maculopapular rash and abrasion wounds wounds with purulent discharge), other (Palpable left ankle tenderness). Absent: full ROM (limited ROM due to pain on anterior right knee), pedal edema - Back Exam Back exam: Present: normal inspection, full ROM. Absent: tenderness, CVA tenderness (R), CVA tenderness (L), muscle spasm, paraspinal tenderness, vertebral tenderness - Neurological Exam Neurological exam: Present: alert, oriented X3, CN II-XII intact, normal gait, reflexes normal - Psychiatric Psychiatric exam: Present: normal affect, normal mood - Skin Skin exam: Present: warm, dry, intact, rash (Erythematous maculopapular rash on anterior right knee around ulcerated abrasion wound with purulent discharge), erythema, abrasion ED Course Vital Signs 04/24/20 04/24/20 04/24/20 20:28 20:51 20:52 Temperature 100.0 F H Pulse Rate 108 H Respiratory 18 18 18 Rate Blood Pressure 136/93 O2 Sat by Pulse 99 Oximetry ED Medical Decision Making - Lab Data Result diagrams: 04/24/20 21:13 04/24/20 21:13 - Radiology Data Radiology results: report reviewed, image reviewed [facility] [address] [place] [address] XRay Report Signed Patient: MADDISON SHERWOOD MR #: [id number] : 1980 Acct:[id number] Age/Sex: 40 / F ADM Date: 04/24/20 Loc: ED Attending Dr: Ordering Physician: ARTHUR VALDEZ Date of Service: 04/24/20 Procedure(s): XR knee 3V RT Accession Number(s): [id number] cc: ARTHUR VALDEZ Fluoro Time In Minutes: RIGHT KNEE, 3 VIEWS INDICATION / CLINICAL INFORMATION: trip and fall, right knee pain. COMPARISON: None available. FINDINGS: No fracture or malalignment identified. No significant suprapatellar joint effusion identified. There is mild to moderate prepatellar soft tissue swelling. IMPRESSION: 1. Prominent prepatellar soft tissue swelling. 2. No visible fracture or malalignment. Signer Name: Rafaela Noble MD Signed: 04/24/2020 9:32 PM Workstation Name: [id number] Transcribed By: Dictated By: Rafaela Noble MD Electronically Authenticated By: Rafaela Noble MD Signed Date/Time: 04/24/202131 DD/ 30 TD/TT: [facility] [address] [place] [address] XRay Report Signed Patient: MADDISON SHERWOOD MR #: [id number] : 1980 Acct:[id number] Age/Sex: 40 / F ADM Date: 04/24/20 Loc: ED Attending Dr: Ordering Physician: ARTHUR VALDEZ Date of Service: 04/24/20 Procedure(s): XR ankle 3+V LT Accession Number(s): [id number] cc: ARTHUR VALDEZ Fluoro Time In Minutes: LEFT ANKLE, 3 VIEWS INDICATION / CLINICAL INFORMATION: trip and fall, left ankle pain. COMPARISON: None available. FINDINGS: No fracture or malalignment identified. I do not see significant focal soft tissue swelling. IMPRESSION: No acute osseous abnormality. Signer Name: Rafaela Noble MD Signed: 04/24/2020 9:31 PM Workstation Name: [id number] Transcribed By: Dictated By: Rafaela Noble MD Electronically Authenticated By: Rafaela Noble MD Signed Date/Time: 04/24/202130 DD/ 29 TD/TT: - Medical Decision Making This is a 40-year-old -Japanese female with a history of hypertension who presents to the ED with complaint of acute onset persistent severe right knee pain and swelling, left ankle pain and ulcerated anterior right knee abrasion wounds with erythematous rash for the last 2 days after she slipped and fell down on the concrete ground landing on her right knee and in the process twisting her left ankle prior to fall. Patient states that she has been cleaning and dressing the anterior right knee abrasion wounds at home but states that the pain got worse in the last 24 hours such that she can hardly bear weight on the right leg because of worsening pain. Patient also states that she has been cleaning the wound with normal Betadine solution and applying Neosporin awva-yye-natteww while taking fvrd-aky-psnvobm pain medications. Patient states that the pain is especially worse with ambulation or bearing weight on the right leg and also left ankle. In the ED, patient is alert and oriented x3 and is not in distress but tachycardic and febrile in triage. Lab test results were reviewed and are all nonactionable. Patient was treated for pain in the ED and also received normal saline 1 L IV bolus x1. Patient was also treated with Keflex 1 g p.o. x1. Left ankle x-ray shows no acute fractures or subluxations. The right knee x-ray showed no acute fractures or subluxation but prominent prepatellar soft tissue tissue swelling. On reevaluation, patient's pain is well controlled medications vital signs were rechecked and are all stable., And the wound appropriately cleaned with normal saline and Neosporin ointment was applied. A nonstick gauze was applied and the wound also dressed with Kerlix. Patient was discharged home on pain medications and antibiotics and was advised to follow-up with her primary care physician in 5 to 7 days for reevaluation or return to the ED immediately if symptoms get worse. - Differential Diagnosis Cellulitis; knee fractures; ankle sprain; knee contusion; infected abrasion Critical care attestation.: If time is entered above; I have spent that time in minutes in the direct care of this critically ill patient, excluding procedure time. ED Disposition Clinical Impression: Cellulitis of right knee, Contusion of right knee, initial encounter Sprain of right knee Qualifiers: Encounter type: initial encounter Involved ligament of knee: unspecified ligament Qualified Code(s): S83.91XA - Sprain of unspecified site of right knee, initial encounter Abrasion of right knee Qualifiers: Encounter type: initial encounter Qualified Code(s): S80.211A - Abrasion, right knee, initial encounter Sprain of left ankle Qualifiers: Encounter type: initial encounter Involved ligament of ankle: unspecified ligament Qualified Code(s): S93.402A - Sprain of unspecified ligament of left ankle, initial encounter Disposition: TO HOME OR SELFCARE Is pt being admited?: No Does the pt Need Aspirin: No Condition: Stable Instructions: Ankle Sprain, [id number]-[id number], Contusion, Edye-zd-Tqaq, Knee Sprain, Adult, Ophx-yi-Losk, Cellulitis, Adult, Vrip-ce-Lcce, Abrasion, [id number] Additional Instructions: All lab test results were reviewed and are all nonactionable. Right knee and ankle x-ray showed no acute fractures or subluxations. Therefore take medication with food, drink plenty of fluids and follow-up with your primary care physician in 5 to 7 days for reevaluation. Return to the ED immediately if symptoms get worse. Prescriptions: Baclofen 20 mg PO Q8H PRN #24 tablet PRN Reason: Muscle Spasm Sulfamethoxazole/Trimethoprim [Bactrim DS TAB] 1 each PO Q12H #20 tablet Ibuprofen [Motrin] 600 mg PO Q8H PRN #30 tablet PRN Reason: Pain traMADoL [Ultram] 50 mg PO Q6HR PRN #12 tablet PRN Reason: Pain Referrals: NORA CABRERA MD [Primary Care Provider] - 3-5 Days Forms: Work/School Release Form(ED) Time of Disposition: 22:49 Print Language: BELGIAN
[2020-04-24 21:26] LABS: Basophils % (Auto) 0.7 % (0.0-1.8); Eosinophils # (Auto) 0.2 K/mm3 (0.0-0.4); Eosinophils % (Auto) 2.7 % (0.0-4.3); Hematocrit 44.1 % (30.3-42.9); Hemoglobin 15.5 gm/dl (10.1-14.3); Lymphocytes # (Auto) 2.4 K/mm3 (1.2-5.4); Lymphocytes % (Auto) 34.9 % (13.4-35.0); Mean Corpuscular HGB Conc 35 % (30-34); Mean Corpuscular Volume 89 fl (79-97); Monocytes # (Auto) 0.6 K/mm3 (0.0-0.8); Monocytes % (Auto) 8.6 % (0.0-7.3); Platelet Count 242 K/mm3 (140-440); Red Blood Count 4.95 M/mm3 (3.65-5.03); Red Cell Distribution Width 12.8 % (13.2-15.2)
--- NOTE | 2020-04-24 21:36 | XRay Report ---
LEFT ANKLE, 3 VIEWS INDICATION / CLINICAL INFORMATION: trip and fall, left ankle pain. COMPARISON: None available. FINDINGS: No fracture or malalignment identified. I do not see significant focal soft tissue swelling. IMPRESSION: No acute osseous abnormality. Signer Name: Rafaela Noble MD Signed: 04/24/2020 9:31 PM Workstation Name: [id number]
--- NOTE | 2020-04-24 21:37 | XRay Report ---
RIGHT KNEE, 3 VIEWS INDICATION / CLINICAL INFORMATION: trip and fall, right knee pain. COMPARISON: None available. FINDINGS: No fracture or malalignment identified. No significant suprapatellar joint effusion identified. There is mild to moderate prepatellar soft tissue swelling. IMPRESSION: 1. Prominent prepatellar soft tissue swelling. 2. No visible fracture or malalignment. Signer Name: Rafaela Noble MD Signed: 04/24/2020 9:32 PM Workstation Name: [id number]
[2020-04-24 21:44] LABS: Alanine Aminotransferase 13 units/L (7-56); Albumin 4.2 g/dL (3.9-5); Blood Urea Nitrogen 9 mg/dL (7-17); Calcium 9.3 mg/dL (8.4-10.2); Hemolysis Index 3
[2020-04-24 21:46] LABS: BUN/Creatinine Ratio 15
[2020-04-24] MEDS ORDERED: NEOMY 3.5 MG/BACIT 400 UNITS/POLY B 5000 UNITS/GM OINT PACKET TP ONE (22:16)
[2020-04-24 22:58] VITALS: BP 116/69
== END 2020-04-24 23:10 | disposition home or self-care (01) ==
LOC: ED 20:04
DX: S93.402A Sprain of unspecified ligament of left ankle, initial encounter (principal); S83.92XA Sprain of unspecified site of left knee, initial encounter; L03.115 Cellulitis of right lower limb; I10 Essential (primary) hypertension; Z98.890 Other specified postprocedural states; Z79.1 Long term (current) use of non-steroidal anti-inflammatories (NSAID); Z79.899 Other long term (current) drug therapy; W01.0XXA Fall on same level from slipping, tripping and stumbling without subsequent striking against object, initial encounter; Y93.89 Activity, other specified; Y92.009 Unspecified place in unspecified non-institutional (private) residence as the place of occurrence of the external cause; Y99.8 Other external cause status
CPT/HCPCS: 36415; 73562; 73610; 80053; 85025; 90471; 90715; 96360; 99284; A6250; J7030; Q0162